=== PATIENT | male | born 1985 | race Caucasian/White ===

== ENCOUNTER 2018-06-25 16:48 | Day surgery (SDC) | payer BC ==
[~2018-06-25] VITALS: Ht 175.3 cm; Wt 104.5 kg
[2018-06-25] MEDS ORDERED: ONDANSETRON 4MG/2ML VIAL (J2405) IV ONE (17:15)
[2018-06-25] MEDS ORDERED: NS 1,000 ML IV ONE (17:15)
[2018-06-25] MEDS ORDERED: KETOROLAC 30 MG/ML VIAL (J1885) IV ONE (17:15)
[2018-06-25] MEDS ORDERED: HYDR-4514 PO (17:20)
[2018-06-25] MEDS ORDERED: PROTPAK PO (17:20)
[2018-06-25] MEDS ORDERED: VENTAER INH (17:20)
[2018-06-25 17:38] LABS: BASO % 0.2 % (0.0-1.0); EOS # 0.1 10^3/uL (0.0-0.50); EOS % 1.8 % (0.0-3.0); HEMATOCRIT 48.1 % (42.0-52.0); HEMOGLOBIN 15.1 g/dl (13.5-17.5); LYMPH # 0.8 10^3/uL (1.5-4.5); LYMPH % 16.9 % (24.0-44.0); MEAN CORPUSCULAR HEMOGLOBIN 23.5 pg (27.0-33.0); MEAN CORPUSCULAR HGB CONC 31.4 g/dl (32.0-36.5); MEAN CORPUSCULAR VOLUME 74.9 fl (80.0-96.0); MONO # 0.3 10^3/uL (0.0-0.8); MONO % 6.4 % (0.0-5.0); NEUTROPHILS # 3.4 10^3/uL (1.8-7.7); NEUTROPHILS % 74.7 % (36.0-66.0); PLATELET COUNT, AUTOMATED 103 10^3/uL (150-450); RED BLOOD COUNT 6.42 10^6/uL (4.30-6.10); WHITE BLOOD COUNT 4.6 10^3/uL (4.0-10.0)
[2018-06-25] MEDS ORDERED: MORPHINE 4 MG/ML 1ML VIAL/SYRINGE (J2270) IV ONE ×2 (18:00→20:15)
[2018-06-25 18:08] LABS: ALBUMIN 3.6 GM/DL (3.2-5.2); ALT/SGPT 56 U/L (12-78); BILIRUBIN,DIRECT < 0.1 MG/DL (0.0-0.2); BILIRUBIN,TOTAL 0.5 MG/DL (0.2-1.0); BLOOD UREA NITROGEN 16 MG/DL (7-18); CALCIUM LEVEL 8.2 MG/DL (8.5-10.1); CARBON DIOXIDE LEVEL 28 MEQ/L (21-32); CHLORIDE LEVEL 104 MEQ/L (98-107); GLOMERULAR FILTRATION RATE > 60.0 (>60); GLUCOSE, FASTING 102 MG/DL (70-100); LIPASE 81 U/L (73-393); POTASSIUM SERUM 4.6 MEQ/L (3.5-5.1); SODIUM LEVEL 139 MEQ/L (136-145); TOTAL PROTEIN 7.1 GM/DL (6.4-8.2)
[2018-06-25] MEDS ORDERED: ISOVUE-370 76% 100ML VIAL (Q9967) As Ordered ONE (18:11)
--- NOTE | 2018-06-25 18:42 | REP ---
Clinical: Acute right lower quadrant pain. Technique: Axial contrast enhanced images from the lung bases to the pubic symphysis using 100 ml Isovue 370 intravenous contrast material with coronal and sagittal re-formations. Comparison: None. Findings: Right lower quadrant demonstrates dilated appendix measuring 14.5 mm diameter with appendicolith and periappendiceal inflammatory stranding consistent with acute appendicitis (images [id number]). There is evidence for prior partial resection and anastomoses in the adjacent right lower quadrant. There is no evidence for bowel obstruction or free air to suggest perforation and no drainable collection/abscess. There is eventration of the anterior abdominal wall nonobstructed loops of bowel likely related to prior surgery. Fatty infiltration to the liver without focal hepatic lesion identified. There is a small ovoid low density collection along the lateral contour of the spleen which measures approximately 2.9 cm maximal diameter and may represent a subcortical cyst. The pancreas, gallbladder, bilateral adrenal glands and kidneys are normal. Pelvis demonstrates normal bladder and age-appropriate prostate/seminal vesicles. No pelvic free fluid. Osseous structures are intact and without focal osseous abnormality. Lung bases demonstrate left lower lobe nodular consolidations suggesting acute pneumonia and requiring follow-up to resolution. Impression: 1. Acute appendicitis with appendicolith and dilated appendix to 14.5 mm along with surrounding periappendiceal inflammatory stranding. No bowel obstruction, perforation, ascites or drainable collection/abscess. 2. Hepatic steatosis. 3. Ovoid low density area along the contour of the spleen likely represents cyst and may be reevaluated by ultrasound. 4. Nodular left lower lobe infiltrate compatible with acute pneumonia requires followup to resolution. Electronically Signed by Helio Gao MD 06/25/2018 06:33 P
[2018-06-25] MEDS ORDERED: AMPICILLIN SOD/SULBACTAM SOD 3 GM in D5W MINI-BAG PLUS 100 ML IV ONE (19:30)
[2018-06-25] MEDS ORDERED: PROT1TAB2 PO (19:53)
[2018-06-25] MEDS ORDERED: BREO1INH INH (19:54)
--- NOTE | 2018-06-25 20:04 | REP ---
Clinical: Left lower lobe infiltrate on CT . Comparison: CT dated 06/25/2018 at 06:09 p.m. . Technique: PA and lateral. Findings: The mediastinum and cardiac silhouette are normal. Retrocardiac/left lower lobe infiltrate is subtle by x-ray when compared with CT. No further consolidation, effusion, or pneumothorax noted. The skeletal structures are intact and normal. Impression: The left lower lobe consolidation/infiltrate noted on CT is poorly identified by current x-ray evaluation. Electronically Signed by Helio Gao MD 06/25/2018 07:55 P
--- NOTE | 2018-06-25 20:37 | ECGEPIP ---
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
[2018-06-25] MEDS ORDERED: MORPHINE 4 MG/ML 1ML VIAL/SYRINGE (J2270) As Ordered ONE (20:44)
[2018-06-25] MEDS ORDERED: KETOROLAC 30 MG/ML VIAL (J1885) IV PRN ×2 (20:45→23:45)
[2018-06-25] MEDS ORDERED: ACETAMINOPHEN TAB 650MG DOSE (2X325MG) PO PRN (20:45)
[2018-06-25] MEDS ORDERED: ONDANSETRON 4MG/2ML VIAL (J2405) IV PRN ×2 (20:45→23:45)
[2018-06-25] MEDS: NS 1,000 ML IV SCH (20:51)
[2018-06-25] MEDS ORDERED: BUPIVACAINE/EPIN 0.25% 30 ML VIAL As Ordered ONE (21:51)
[2018-06-25] MEDS ORDERED: fentaNYL 100 MCG/2 ML INJECTION (J3010) As Ordered ONE ×2 (22:28→22:36)
[2018-06-25] MEDS ORDERED: PROPOFOL 200 MG/20 ML VIAL As Ordered ONE (22:28)
[2018-06-25] MEDS ORDERED: ROCURONIUM BROMIDE 50 MG/5 ML VIAL As Ordered ONE (22:28)
[2018-06-25] MEDS ORDERED: ONDANSETRON 4MG/2ML VIAL (J2405) As Ordered ONE (22:29)
[2018-06-25] MEDS ORDERED: dexameTHASONE 4 MG/ML 1ML VIAL (J1100) As Ordered ONE (22:29)
[2018-06-25] MEDS ORDERED: SUCCINYLCHOLINE 100 MG/5 ML SYRINGE (J0330) As Ordered ONE (22:29)
[2018-06-25] MEDS ORDERED: LIDOCAINE 2% INJ 100 MG/5 ML SDV (FOR ANES.) As Ordered ONE (22:29)
[2018-06-25] MEDS ORDERED: ESMOLOL INJ 100MG/10ML VIAL As Ordered ONE (22:50)
[2018-06-25] MEDS ORDERED: SUGAMMADEX SODIUM 500 MG/5 ML VIAL (BRIDION) As Ordered ONE (23:01)
[2018-06-25] MEDS ORDERED: MEPERIDINE 50 MG/ML 1ML VIAL (J2175) As Ordered ONE (23:17)
[2018-06-25 23:35] VITALS: BP 147/67
[2018-06-25] MEDS ORDERED: METOCLOPRAMIDE INJ 10MG/2ML VIAL (J2765) IV PRN (23:45)
[2018-06-25] MEDS ORDERED: MEPERIDINE INJ 25 MG/ML VIAL (J2175) IV PRN (23:45)
[2018-06-25] MEDS ORDERED: PERCOCET 5MG/325MG TAB PO PRN (23:45)
[2018-06-25] MEDS ORDERED: fentaNYL 100 MCG/2 ML INJECTION (J3010) IV PRN (23:45)
[2018-06-25] MEDS ORDERED: LR 1,000 ML IV SCH (23:45)
[2018-06-26] VITALS (8 sets, daily range): BP systolic 128–157; BP diastolic 60–70
[2018-06-26] MEDS: PIPERACILLIN/TAZOBACTAM SOD 3.375 GM in D5W MINI-BAG PLUS 50 ML IV SCH ×2 (01:12→08:21)
[2018-06-26] MEDS: NORCO, ANEXSIA 5/325MG TABLET (HYDROcodone/ACETAMINOPHEN) PO PRN ×2 (01:12→08:23)
[2018-06-26] MEDS: SENOKOT S TAB PO SCH ×2 (01:14→08:22)
[2018-06-26] MEDS: MORPHINE 4 MG/ML 1ML VIAL/SYRINGE (J2270) IV PRN ×2 (03:25→11:23)
[2018-06-26 06:08] LABS: HEMATOCRIT 44.5 % (42.0-52.0); HEMOGLOBIN 13.7 g/dl (13.5-17.5); MEAN CORPUSCULAR HEMOGLOBIN 23.3 pg (27.0-33.0); MEAN CORPUSCULAR HGB CONC 30.8 g/dl (32.0-36.5); MEAN CORPUSCULAR VOLUME 75.8 fl (80.0-96.0); RED BLOOD COUNT 5.87 10^6/uL (4.30-6.10); WHITE BLOOD COUNT 4.1 10^3/uL (4.0-10.0)
[2018-06-26 06:29] LABS: PLATELET COUNT, AUTOMATED 79 10^3/uL (150-450)
[2018-06-26] MEDS: NS 1,000 ML IV SCH (06:45)
[2018-06-26] MEDS ORDERED: AUGM875T28 PO (08:58)
[2018-06-26] MEDS ORDERED: ENOXAPARIN 40 MG/0.4 ML SYRINGE (J1650) SC SCH (09:00)
[2018-06-26] MEDS ORDERED: PANTOPRAZOLE 40MG TAB (PROTONIX) PO SCH (09:00)
--- NOTE | 2018-06-27 09:22 | HPE ---
DATE OF ADMISSION: 06/25/2018 CHIEF COMPLAINT: Abdominal pain. HISTORY OF PRESENT ILLNESS: The patient is a 32-year-old male, who presents with right lower quadrant abdominal pains that has been progressively getting worse over the past 2 days. Denies any nausea or vomiting. No fevers or chills. No abdominal trauma recently. He came into emergency room, had normal labs, normal vitals. However, his CT scan was positive for acute appendicitis. Therefore, I was called to evaluate. Currently, he is still having pain in the right lower quadrant. No other significant findings. PAST MEDICAL HISTORY: Leukemia. PAST SURGICAL HISTORY: Ex lap with a small bowel resection, left shoulder surgery, pilonidal cyst surgery. ALLERGIES: LORAZEPAM. HOME MEDICATIONS: Please see med rec. SOCIAL HISTORY: Denies current drug, alcohol, tobacco abuse. FAMILY HISTORY: Noncontributory. REVIEW OF SYSTEMS: Pertinent positives and negatives as stated in the HPI. PHYSICAL EXAMINATION: General: Alert and oriented times three. No acute stress. Vital signs: Temperature 98.7, pulse 80, respirations 16, blood pressure 191/101, pulse oximetry 97% on room air. HEENT: Pupils equally round, react to light and accommodation. Heart: S1, S2, regular rate and rhythm. Lungs: Clear to auscultation bilaterally. Abdomen: Soft. Tenderness to palpation right lower quadrant. Localized guarding. There is a large ventral incisional hernia. Extremities: No clubbing, cyanosis or edema. LABORATORY DATA: White count 4.6. Hemoglobin 15.1. Platelets 103. Potassium 4.6. Lactic acid 1.6. IMAGING: CT abdomen and pelvis was done, which shows acute appendicitis with appendicolith and a dilated appendix at 14.5 mm with surrounding periappendiceal inflammatory stranding. No signs of any bowel obstruction, perforation or drainable collections. He does also have a very large ventral hernia. ASSESSMENT AND PLAN: The patient is a 32-year-old male with signs and symptoms consistent with acute appendicitis. Recommendation is to proceed with laparoscopic, possible open appendectomy. Risk and benefits of procedure not limited to but including bleeding, infection, damage to surrounding structures, need for further surgery were discussed in detail with the patient. Informed was obtained and procedure was planned. Postoperatively, we will keep him overnight and as long as his labs are okay in the morning and he is afebrile, we will plan to discharge him home then.
--- NOTE | 2018-06-27 11:01 | DSES ---
DATE OF ADMISSION: 06/25/2018 DATE OF DISCHARGE: 06/26/2018 ADMISSION DIAGNOSIS: Acute appendicitis. DISCHARGE DIAGNOSIS: Acute appendicitis. HOSPITAL COURSE: The patient is a 32-year-old male presented to the ER on the with acute appendicitis. He was taken the operating room yesterday evening for a lab mapping. Postoperatively he is doing well. He does have a drain in the right lower quadrant still that was left in place because of the extensive adhesions that were down there in that it has some serosanguineous fluid in it. Other than that his pain is mainly at his incision sites. No fevers or chills. He is urinating appropriately, tolerating a diet. Plan is to discharge him home today. He has pain meds at home already. I will send him home with a 7-day course of antibiotics and he will follow up me in the office this to have his drain removed. All of his questions were answered. He knows that he is shower starting tonight. No baths for 5 days. No lifting more 20 pounds for 2 weeks.
--- NOTE | 2018-06-27 12:32 | RO ---
DATE OF PROCEDURE: 06/25/2018 PREOPERATIVE DIAGNOSIS: Acute appendicitis. POSTOPERATIVE DIAGNOSIS: Acute appendicitis. PROCEDUREL Laparoscopic appendectomy. SURGEON: Mert Hidalgo DO LEAD SYSTEMS ENGINEER: None. ANESTHESIA: General. ESTIMATED BLOOD LOSS (EBL): 5. COMPLICATION: None. INDICATION FOR PROCEDURE: The patient is a 32-year-old male who presents with right lower quadrant abdominal pain, thought acute appendicitis. Recommendation to proceed with laparoscopic, possible open, appendectomy. The risks and benefits of the procedure not limited but including bleeding, infection, hernia formation, damage to surrounding structures, need for further surgery discussed in detail with the patient. Informed consent was obtained, and procedure was planned. DESCRIPTION OF PROCEDURE: The patient brought back to operating room #3. After sufficient sedation, the abdomen was sterilely prepped and draped. Next, time-out was done to confirm proper patient and proper procedure. Following that, a 5-mm incision made in left lower quadrant, Veress needle inserted, and the abdomen was insufflated with 15 mmHg. Next, the Veress needle was removed. A 5-mm Optiview port was used to gain access to the abdomen. Once the abdomen was entered, there were multiple adhesions of small bowel and large bowel throughout the entire abdomen. Another 5-mm port was placed in left lower quadrant. Another 5-mm port in the left midabdomen. Using sharp dissection, I was able to take down loops of small bowel that were adhered along the pelvis in the right lower quadrant. Once all those loops were taken down, the cecum was identified densely adhered to the right lower quadrant, as well as the appendix was scarred into the abdominal wall. I was able to carefully dissect that free using some blunt and sharp dissection. Once that was done, I was able to find the base of the appendix, dissect through the mesoappendix, and then amputate that using the Enseal. The base the appendix was then ligated with two polydioxanone suture (PDS) Endoloops and amputated as well using the Enseal. The appendix was then removed in a 5-mm EndoCatch bag through the left lower quadrant port. The 19-Setswana Declan drain was then placed in the right lower quadrant, brought out through the left lower quadrant incision, sutured in place with a 2-0 silk suture. The abdomen was then desufflated. Skin incisions were closed 4-0 Vicryl subcuticular sutures and was cleaned and dried. Steri-Strips, 4 x 4, and tape were applied, thus ending the procedure.
== END 2018-06-26 11:46 | disposition home or self-care (01) ==
LOC: M ED 16:48 → M SDC 19:46 → M MSPAV 06-26 00:30 → M SDC 06-26 11:46
PROVIDERS: ATTEND Surgery
DX: K35.890 Other acute appendicitis without perforation or gangrene (principal); Z85.6 Personal history of leukemia; Z79.899 Other long term (current) drug therapy; Z88.8 Allergy status to other drugs, medicaments and biological substances
CPT/HCPCS: 36415; 44970; 71046; 74177; 80048; 80076; 81001; 83605; 83690; 85025; 85027; 85049; 85055; 87040; 88304; 93005; 96361; 96365; 96375; 96376; 99284; J0330; J1100; J1885; J2175; J2270; J2405; J2543; J3010; Q9967

== ENCOUNTER 2019-01-22 15:37 | Emergency (ER) | payer BC ==
[~2019-01-22] VITALS: Ht 175.3 cm; Wt 104.5 kg
[2019-01-22] MEDS ORDERED: NS 500 ML IV ONE (17:45)
[2019-01-22] MEDS ORDERED: ISOVUE-370 76% 100ML VIAL (Q9967) As Ordered ONE (17:59)
--- NOTE | 2019-01-22 18:44 | REPVR ---
PROCEDURE INFORMATION: Exam: CT Angiography Chest With Contrast Exam date and time: 01/22/2019 5:45 PM Clinical history: 33 years old, male; Abnormal findings; Abnormal diagnostic tests; Elevated d-dimer; Other: Pleuritic chest pain; Additional info: Elevated d-dimer, pleuritic cp TECHNIQUE: Imaging protocol: Computed tomographic angiography of the chest with intravenous contrast. 3D rendering: MIP reconstructed images were created and reviewed. Radiation optimization: All CT scans at this facility use at least one of these dose optimization techniques: automated exposure control; mA and/or kV adjustment per patient size (includes targeted exams where dose is matched to clinical indication); or iterative reconstruction. Contrast material: ISOVUE 370; Contrast volume: 75 ml; Contrast route: IV; COMPARISON: CR Chest, 2 view PA, Lat 06/25/2018 7:26 PM FINDINGS: Pulmonary arteries: No pulmonary embolism identified. Aorta: Unremarkable. No aortic aneurysm. No aortic dissection. Lungs: No infiltrates. Pleural space: No pleural effusion. No pneumothorax. Heart: Unremarkable. No cardiomegaly. No pericardial effusion. Mediastinum: There is mild thickening of the distal esophageal wall. Correlate with clinical information regarding esophagitis. Liver: There is a diffuse decrease in hepatic parenchymal density, consistent with fatty infiltration. Lymph nodes: No mediastinal or hilar lymphadenopathy. Note is made of prominent periesophageal lymph nodes measuring up to 13 mm. These are nonspecific. Bones/joints: Prominent intraosseous hemangioma at T4. No acute fracture. IMPRESSION: 1. No pulmonary embolism identified. 2. No infiltrate or pleural effusion. 3. Prominent periesophageal lymph nodes, nonspecific. 4. Question distal esophagitis. 5. Hepatic steatosis. Electronically signed by: Katie Mercedes On 01/22/2019 18:44:41 PM
[2019-01-22 18:54] LABS: CK-MB VALUE MASS 1.9 NG/ML (<3.6); CPK CREATINE PHOSPHOKINASE 127 U/L (39-308); TROPONIN I < 0.02 NG/ML (< 0.10)
--- NOTE | 2019-01-22 19:08 | REPVR ---
PROCEDURE INFORMATION: Exam: US Duplex Lower Extremity Veins Exam date and time: 01/22/2019 7:01 PM Clinical history: 33 years old, male; Other: SOB; Additional info: Elevated d-dimer, mult risk factors for dvt/pe TECHNIQUE: Imaging protocol: Real-time duplex ultrasound of the Lower Extremities with 2-D zhao scale, color Doppler flow and spectral waveform analysis with image documentation. Complete exam focused on the bilateral lower extremity veins. COMPARISON: No relevant prior studies available. FINDINGS: Right deep veins: Unremarkable. The common femoral, femoral, proximal profunda femoral and popliteal veins are patent without thrombus. Normal Doppler waveforms. Normal compressibility and/or augmentation response. Right superficial veins: Saphenofemoral junction is patent without thrombus. Left deep veins: Unremarkable. The common femoral, femoral, proximal profunda femoral and popliteal veins are patent without thrombus. Normal Doppler waveforms. Normal compressibility and/or augmentation response. Left superficial veins: Saphenofemoral junction is patent without thrombus. IMPRESSION: No acute findings. No evidence of deep vein thrombosis. Electronically signed by: Katie Mercedes On 01/22/2019 19:08:10 PM
[2019-01-22 19:39] VITALS: BP 141/84
--- NOTE | 2019-01-22 20:45 | ECGEPIP ---
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
--- NOTE | 2019-01-23 10:27 | ED PDOC ---
Post-Departure Follow-Up roly monge and dr powell faxed formal report of cta chest for fu Robyn Mcgowan MD Jan 23, 2019 10:27
== END 2019-01-22 19:41 | disposition home or self-care (01) ==
LOC: M ED 15:37
DX: R79.1 Abnormal coagulation profile (principal); K76.0 Fatty (change of) liver, not elsewhere classified; D69.6 Thrombocytopenia, unspecified; L04.0 Acute lymphadenitis of face, head and neck; K20.9 Esophagitis, unspecified; K21.9 Gastro-esophageal reflux disease without esophagitis; C95.91 Leukemia, unspecified, in remission; K27.9 Peptic ulcer, site unspecified, unspecified as acute or chronic, without hemorrhage or perforation; Z90.49 Acquired absence of other specified parts of digestive tract; Z87.891 Personal history of nicotine dependence; F12.10 Cannabis abuse, uncomplicated; Z79.899 Other long term (current) drug therapy; Z88.8 Allergy status to other drugs, medicaments and biological substances
CPT/HCPCS: 71275; 82550; 82553; 84484; 93005; 93970; 96360; 99284; Q9967

== ENCOUNTER → 2019-01-22 | Outpatient (CLI) | payer BC ==
[~2019-01-22] MED LIST: AUGM875T28 PO; BREO1INH INH; HYDR-4514 PO; PROT1TAB2 PO; PROTPAK PO; VENTAER INH
[2019-01-22 09:46] LABS: BASO % 0.6 % (0.0-1.0); EOS # 0.1 10^3/uL (0.0-0.5); HEMOGLOBIN 15.2 g/dl (13.5-17.5); LYMPH # 1.3 10^3/uL (1.5-5.0); LYMPH % 37.5 % (24.0-44.0); MEAN CORPUSCULAR HEMOGLOBIN 25.2 pg (27.0-33.0); MEAN CORPUSCULAR HGB CONC 31.7 g/dl (32.0-36.5); MEAN CORPUSCULAR VOLUME 79.6 fl (80.0-96.0); MONO # 0.1 10^3/uL (0.0-0.8); NEUTROPHILS # 1.9 10^3/uL (1.5-8.5); NEUTROPHILS % 55.6 % (36.0-66.0); PLATELET COUNT, AUTOMATED 115 10^3/uL (150-450); RED BLOOD COUNT 6.03 10^6/uL (4.30-6.10); WHITE BLOOD COUNT 3.5 10^3/uL (4.0-10.0)
[2019-01-22 10:14] LABS: ALBUMIN 3.6 GM/DL (3.2-5.2); ALT/SGPT 75 U/L (12-78); BILIRUBIN,TOTAL 0.2 MG/DL (0.2-1.0); BLOOD UREA NITROGEN 17 MG/DL (7-18); CALCIUM LEVEL 8.9 MG/DL (8.5-10.1); CARBON DIOXIDE LEVEL 28 MEQ/L (21-32); CHLORIDE LEVEL 110 MEQ/L (98-107); CREATININE FOR GFR 0.91 MG/DL (0.70-1.30); GLOMERULAR FILTRATION RATE > 60.0 (>60); GLUCOSE, FASTING 118 MG/DL (70-100); POTASSIUM SERUM 4.2 MEQ/L (3.5-5.1); SODIUM LEVEL 141 MEQ/L (136-145); TOTAL PROTEIN 7.3 GM/DL (6.4-8.2)
== END ==
LOC: M LAB 09:12
PROVIDERS: ATTEND Physician Assistant
DX: R06.00 Dyspnea, unspecified (principal)

== ENCOUNTER 2019-04-16 14:49 | Inpatient (IN) | payer BC, OTHER ==
[~2019-04-16] VITALS: Ht 175.3 cm; Wt 109.5 kg
[2019-04-16] MEDS ORDERED: SYMB16INH INH (15:03)
[2019-04-16] MEDS ORDERED: ONDANSETRON 4MG/2ML VIAL (J2405) IV ONE (15:30)
[2019-04-16] MEDS: MORPHINE 2 MG/ML 1ML VIAL (J2270) IV PRN ×3 (15:45→17:40)
[2019-04-16] MEDS ORDERED: ISOVUE-370 76% 100ML VIAL (Q9967) As Ordered ONE (15:49)
--- NOTE | 2019-04-16 16:35 | REP ---
CT of the chest with IV contrast for trauma: Comparison is 01/22/2019. There is a tiny pneumothorax anteriorly in the apex of the right lung. No other pneumothorax. There is no hemothorax or pulmonary contusion. The thoracic aorta is unremarkable. There is no periaortic hematoma. There is no mediastinal hematoma. Cardiac size is normal. There is no pericardial effusion. There are no fractures of the visualized portions of the clavicles or scapulas. There is a fracture of the posterior arch of the right tenth rib, nondisplaced. No other rib fractures are identified. There is no sternal fracture. No vertebral fractures are identified. Impression: Nondisplaced fracture of the posterior arch of the right tenth rib. Tiny right apical pneumothorax anteriorly in the apex of the right lung. No hemothorax or pulmonary contusion. No periaortic or mediastinal hematoma. Electronically Signed by Mert Guzmán MD 04/16/2019 04:27 P
--- NOTE | 2019-04-16 16:49 | REP ---
CT of the abdomen and pelvis with IV contrast: Comparison is 06/25/2018. The left lower lobe infiltrate identified previously has resolved. There is no pneumoperitoneum or hemoperitoneum. The hepatic parenchyma is homogeneous. There is focal induration at the tip of the liver interposed between the liver and right kidney, possibly a mesenteric contusion. The pancreas is unremarkable. The stomach is distended with ingested material. There is a focal zone of nonenhancement at the anterior margin of the spleen, possibly a splenic hematoma as an interval change. The previous subcapsular cyst noted along the lateral margin of the spleen is no longer identified. The adrenals are unremarkable. There are no pararenal hematoma as. No renal contusion. The renal cortices enhance normally. The abdominal aorta is unremarkable. There is no periaortic hematoma. There is no bowel distension or obstruction. There is a circumferential anastomotic surgical suture line in a loop of small bowel on the right, unchanged. The patient reportedly has an appendectomy. Pelvis: There is no free fluid. Pelvic bowel loops are unremarkable. The bladder is unremarkable. There are no lumbar or pelvic fractures. There is a fracture of the posterior arch of the right tenth rib. Impression: No pneumoperitoneum or hemoperitoneum. Possible splenic hematoma. The liver, kidneys and abdominal aorta are unremarkable. Stomach is distended with ingested material. Anastomotic surgical suture ring in a small bowel loop on the right. The patient reportedly has an appendectomy. Fracture of the posterior arch of the right tenth rib. No lumbar or pelvic fractures. Possible mesenteric contusion interposed between the inferior tip of the liver and the right kidney. Electronically Signed by Mert Guzmán MD 04/16/2019 04:41 P
[2019-04-16 17:24] LABS: HEMATOCRIT 50.4 % (42.0-52.0); HEMOGLOBIN 15.6 g/dl (13.5-17.5); MEAN CORPUSCULAR HEMOGLOBIN 24.7 pg (27.0-33.0); MEAN CORPUSCULAR VOLUME 79.7 fl (80.0-96.0); PLATELET COUNT, AUTOMATED 149 10^3/uL (150-450); RED BLOOD COUNT 6.32 10^6/uL (4.30-6.10); WHITE BLOOD COUNT 4.3 10^3/uL (4.0-10.0)
[2019-04-16 17:28] LABS: INR 1.17; PROTHROMBIN TIME 14.6 SECONDS (11.8-14.0)
[2019-04-16 17:29] LABS: PARTIAL THROMBOPLASTIN TIME 24.4 SECONDS (25.0-38.4)
[2019-04-16 17:32] LABS: ALBUMIN 4.2 GM/DL (3.2-5.2); BILIRUBIN,DIRECT 0.2 MG/DL (0.0-0.2); BILIRUBIN,TOTAL 0.6 MG/DL (0.2-1.0); TOTAL PROTEIN 7.4 GM/DL (6.4-8.2)
[2019-04-16] MEDS ORDERED: CLIN1LOT TOP (18:49)
[2019-04-16] MEDS ORDERED: NS 1,000 ML IV SCH (18:51)
[2019-04-16] MEDS ORDERED: ONDANSETRON 4MG/2ML VIAL (J2405) IV PRN ×2 (19:00)
[2019-04-16] MEDS ORDERED: IPRATROPIUM 0.5MG/ALBUTEROL 2.5MG INH SOL UD 3ML (DUONEB)(J7620) NEB PRN (19:00)
[2019-04-16] MEDS ORDERED: NALBUPHINE HCL 10 MG/ML AMP (J2300) IV PRN (19:00)
[2019-04-16] MEDS ORDERED: diphenhydrAMINE INJ 50MG/ML VIAL (J1200) IV PRN (19:00)
[2019-04-16] MEDS ORDERED: EPIDURAL/PCA KEYS XX PRN (19:00)
[2019-04-16] MEDS ORDERED: NALOXONE INJ 0.4 MG/1 ML VIAL (J2310) IV PRN (19:00)
--- NOTE | 2019-04-16 19:31 | HPE ---
DATE OF ADMISSION: 04/16/2019 BRIEF HISTORY OF PRESENT ILLNESS: The patient is 33-year-old male who was climbing a ladder and fell off the ladder and hit his right posterior chest on the deck railing and had some shortness of breath and afterwards pain with inspiration came to the emergency room and was evaluated for this trauma. Did not have any hypotensive episodes did not have any hematemesis. PAST MEDICAL HISTORY: 1. Significant for history of hairy cell leukemia currently in remission. 2. Status post trauma to the upper abdomen with a splenic contusion. 3. Ventral hernia repair (question component separation) history of appendectomy, history of asthma. MEDICATIONS: Budesonide, [place] and Protonix. PHYSICAL EXAMINATION: Reveals a 33 old male who looks stated age. HEENT is unremarkable. Neck: Supple without adenopathy. Lungs are clear to auscultation anteriorly without crackles, wheezes or rhonchi. Heart is regular without murmur. Abdomen is soft, nondistended, nontender. He does complain of some right posterior rib tenderness and but otherwise his pelvis is stable. He has no contusions or abrasions on his extremities and no other significant abnormalities on his abdominal exam. His previous hernia repair is intact. No evidence of significant abnormality present. IMPRESSION AND PLAN: Patient is status post trauma / fall with a rib fracture and possible liver contusion given some elevated liver function tests. I do feel that this will need to be watched over the next 24-48 hours to make sure this is progressing. The questionable and pneumothorax is appreciated on the CT scan I feel is probably some apical blebs instead of true pneumothorax. However, will get a follow-up x-ray in the morning to rule out specific abnormality there. In addition, he may have some difficulties with pain control given his chronic narcotic use. 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
[2019-04-16 21:01] VITALS: BP 143/73
[2019-04-16 21:31] VITALS: BP 142/73
[2019-04-16] MEDS: NS 1,000 ML IV SCH (21:37)
[2019-04-16] MEDS: MORPHINE 1MG/ML IN 0.9% NACL 100ML IV BAG IV PRN (21:38)
[2019-04-16] MEDS: KETOROLAC 30 MG/ML VIAL (J1885) IV SCH (21:39)
[2019-04-16] MEDS: PANTOPRAZOLE 40MG INJ (PROTONIX) (C9113) IV SCH (21:39)
[2019-04-16 22:01] VITALS: BP 141/63
[2019-04-16 22:31] VITALS: BP 128/66
[2019-04-17] VITALS (8 sets, daily range): BP systolic 121–137; BP diastolic 71–79
[2019-04-17] MEDS: IPRATROPIUM 0.5MG/ALBUTEROL 2.5MG INH SOL UD 3ML (DUONEB)(J7620) NEB SCH ×5 (02:00→19:57)
[2019-04-17] MEDS: KETOROLAC 30 MG/ML VIAL (J1885) IV SCH ×4 (02:47→20:50)
[2019-04-17 06:12] LABS: HEMATOCRIT 42.2 % (42.0-52.0); MEAN CORPUSCULAR HEMOGLOBIN 25.3 pg (27.0-33.0); MEAN CORPUSCULAR HGB CONC 31.5 g/dl (32.0-36.5); MEAN CORPUSCULAR VOLUME 80.4 fl (80.0-96.0); PLATELET COUNT, AUTOMATED 124 10^3/uL (150-450); RED BLOOD COUNT 5.25 10^6/uL (4.30-6.10); WHITE BLOOD COUNT 4.4 10^3/uL (4.0-10.0)
[2019-04-17 06:19] LABS: HEMOGLOBIN 13.3 g/dl (13.5-17.5)
[2019-04-17 06:40] LABS: ALBUMIN 3.4 GM/DL (3.2-5.2); ALT/SGPT 339 U/L (12-78); BILIRUBIN,TOTAL 0.7 MG/DL (0.2-1.0); BLOOD UREA NITROGEN 25 MG/DL (7-18); CALCIUM LEVEL 8.1 MG/DL (8.5-10.1); CARBON DIOXIDE LEVEL 25 MEQ/L (21-32); CHLORIDE LEVEL 108 MEQ/L (98-107); CREATININE FOR GFR 0.99 MG/DL (0.70-1.30); GLOMERULAR FILTRATION RATE > 60.0 (>60); GLUCOSE, FASTING 144 MG/DL (70-100); POTASSIUM SERUM 3.7 MEQ/L (3.5-5.1); SODIUM LEVEL 139 MEQ/L (136-145); TOTAL PROTEIN 6.7 GM/DL (6.4-8.2)
[2019-04-17] MEDS: SYMBICORT 160/4.5MCG INHALER 6GM INH SCH ×2 (07:42→19:58)
[2019-04-17] MEDS: PANTOPRAZOLE 40MG INJ (PROTONIX) (C9113) IV SCH ×2 (08:35→20:50)
--- NOTE | 2019-04-17 10:16 | REP ---
Chest x-ray: Two views. History: Pneumothorax and rib fracture. Comparison chest x-ray: June 25, 2018. Comparison CT study 20 April 16, 2019. This CT study showed a tiny right apical pneumothorax and right tenth rib fracture. Findings : There is a tiny sliver of pleural air just visible at the right apex. No infiltrate is seen. Right hemidiaphragm is a little elevated. Pleural angles are sharp. Mediastinum is not widened. The lung uriostegui are clear. Impression: Tiny right apical pneumothorax is just barely visible. Otherwise no active disease seen. Electronically Signed by Abner June MD 04/17/2019 10:08 A
--- NOTE | 2019-04-17 10:52 | IPN ---
DATE OF SERVICE: 04/17/2019 The patient overall has been doing well, getting adequate pain control with his pain medication via the patient-controlled analgesia (SOAP SLABBER). Otherwise, seems to be making good progress. No significant shortness of breath. He does have some spasm on his right chest wall with deep inspiration. Has good urine output. He has tolerated diet without nausea or vomiting. His vital signs have been stable. He has been afebrile. He has had good oxygen (O2) saturation. His chest x-ray reveals no evidence of significant pneumothorax. It is just barely visible on the x-ray. When I looked at his previous CAT scans from an outside hospital, I did not see this apical bleb/pneumothorax. Thus, it is suggestive that this is more likely a very small pneumothorax that is present. Otherwise, his lungs are clear anteriorly. Heart is regular. Abdomen: Soft, nontender, nondistended. IMPRESSION AND PLAN: The patient has evidence of a rib fracture and at this point small apical pneumothorax. Will continue treating him with a SOAP SLABBER. I anticipate he will be converted over to by mouth pain medications tomorrow and probably discharged to home the following day on by mouth pain medications, depending on his overall status.
[2019-04-17] MEDS: MORPHINE 1MG/ML IN 0.9% NACL 100ML IV BAG IV PRN (14:22)
[2019-04-17] MEDS: NS 1,000 ML IV SCH (19:02)
[2019-04-18] MEDS: IPRATROPIUM 0.5MG/ALBUTEROL 2.5MG INH SOL UD 3ML (DUONEB)(J7620) NEB SCH ×4 (02:00→19:51)
[2019-04-18 02:01] VITALS: BP 130/80
[2019-04-18] MEDS: KETOROLAC 30 MG/ML VIAL (J1885) IV SCH ×4 (02:40→21:34)
[2019-04-18 05:17] VITALS: BP 130/79
[2019-04-18 07:17] LABS: HEMATOCRIT 39.6 % (42.0-52.0); MEAN CORPUSCULAR HEMOGLOBIN 24.9 pg (27.0-33.0); MEAN CORPUSCULAR HGB CONC 30.3 g/dl (32.0-36.5); MEAN CORPUSCULAR VOLUME 82.3 fl (80.0-96.0); RED BLOOD COUNT 4.81 10^6/uL (4.30-6.10)
[2019-04-18 07:39] LABS: ALT/SGPT 182 U/L (12-78); BILIRUBIN,TOTAL 0.5 MG/DL (0.2-1.0); BLOOD UREA NITROGEN 19 MG/DL (7-18); CALCIUM LEVEL 7.9 MG/DL (8.5-10.1); CARBON DIOXIDE LEVEL 25 MEQ/L (21-32); CHLORIDE LEVEL 107 MEQ/L (98-107); GLOMERULAR FILTRATION RATE > 60.0 (>60); GLUCOSE, FASTING 123 MG/DL (70-100); SODIUM LEVEL 139 MEQ/L (136-145); TOTAL PROTEIN 6.2 GM/DL (6.4-8.2)
[2019-04-18 08:11] LABS: PLATELET COUNT, AUTOMATED 83 10^3/uL (150-450)
[2019-04-18] MEDS: SYMBICORT 160/4.5MCG INHALER 6GM INH SCH ×2 (08:35→19:51)
[2019-04-18] MEDS: PANTOPRAZOLE 40MG INJ (PROTONIX) (C9113) IV SCH ×2 (08:47→21:33)
[2019-04-18] MEDS ORDERED: IBUPROFEN 800 MG TAB PO PRN (11:00)
[2019-04-18] MEDS: ANEXSIA, NORCO 7.5MG/325MG TABLET(HYDROCODONE/APAP) PO PRN ×3 (11:39→22:38)
--- NOTE | 2019-04-18 12:44 | REP ---
Chest x-ray: Two views. History: Pneumothorax. Comparison chest x-ray: April 17, 2019. Findings: Previously noted tiny right apical pneumothorax has decreased and is barely visible. There is slight blunting of the right posterior pleural angle indicating a small quantity of right pleural fluid. The lung uriostegui are otherwise clear. Impression: Small pleural effusion noted blunting the right lateral pleural angle. The previously noted right-sided pneumothorax has decreased and is barely visible. Electronically Signed by Abner June MD 04/18/2019 12:36 P
--- NOTE | 2019-04-18 13:12 | IPNPDOC ---
Text Note Date of Service The patient was seen on 04/18/19. NOTE No acute events overnight. Tolerating diet. No nausea or emesis. Pain is impr quang, and he has no shortness of breath. 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
[2019-04-18 14:00] VITALS: BP 136/67
[2019-04-18 22:00] VITALS: BP 145/71
[2019-04-19] MEDS: KETOROLAC 30 MG/ML VIAL (J1885) IV SCH ×2 (01:52→08:45)
[2019-04-19 02:00] VITALS: BP 132/80
[2019-04-19] MEDS: IPRATROPIUM 0.5MG/ALBUTEROL 2.5MG INH SOL UD 3ML (DUONEB)(J7620) NEB SCH ×2 (02:00→07:58)
[2019-04-19] MEDS: ANEXSIA, NORCO 7.5MG/325MG TABLET(HYDROCODONE/APAP) PO PRN ×2 (04:48→08:47)
[2019-04-19 06:00] VITALS: BP 124/65
[2019-04-19 07:06] LABS: MEAN CORPUSCULAR HEMOGLOBIN 25.5 pg (27.0-33.0); MEAN CORPUSCULAR HGB CONC 31.6 g/dl (32.0-36.5); MEAN CORPUSCULAR VOLUME 80.7 fl (80.0-96.0); RED BLOOD COUNT 4.71 10^6/uL (4.30-6.10)
[2019-04-19 07:33] LABS: ALBUMIN 2.7 GM/DL (3.2-5.2); ALT/SGPT 119 U/L (12-78); BILIRUBIN,TOTAL 0.4 MG/DL (0.2-1.0); BLOOD UREA NITROGEN 15 MG/DL (7-18); CALCIUM LEVEL 7.8 MG/DL (8.5-10.1); CARBON DIOXIDE LEVEL 29 MEQ/L (21-32); CHLORIDE LEVEL 111 MEQ/L (98-107); CREATININE FOR GFR 0.85 MG/DL (0.70-1.30); GLOMERULAR FILTRATION RATE > 60.0 (>60); GLUCOSE, FASTING 108 MG/DL (70-100); POTASSIUM SERUM 4.9 MEQ/L (3.5-5.1); SODIUM LEVEL 144 MEQ/L (136-145)
[2019-04-19 07:48] LABS: PLATELET COUNT, AUTOMATED 82 10^3/uL (150-450)
[2019-04-19] MEDS: SYMBICORT 160/4.5MCG INHALER 6GM INH SCH (07:58)
[2019-04-19] MEDS: PANTOPRAZOLE 40MG INJ (PROTONIX) (C9113) IV SCH (08:45)
[2019-04-19] MEDS ORDERED: IBUP80TA PO (10:27)
[2019-04-19] MEDS ORDERED: PERCOCET PO (10:27)
[2019-04-19] MEDS ORDERED: PERCOCET 5MG/325MG TAB PO PRN (10:30)
--- NOTE | 2019-04-23 06:48 | DSES ---
DATE OF ADMISSION: 04/16/2019 DATE OF DISCHARGE: 04/19/2019 PRINCIPAL DIAGNOSES: Rib fractures status post fall. Possible liver contusion. Questionable small pneumothorax. ASSOCIATED DIAGNOSES: History of hairy cell leukemia (in remission). Status post trauma to the upper abdomen with splenic contusion. History of ventral hernia repair. History of asthma. HISTORY OF PRESENT ILLNESS: The patient is a 33 old male who was climbing a ladder, fell off the ladder and he fell onto a porch railing and hit his right posterior chest on the deck railing. He had some shortness of breath, came into the emergency room for additional evaluation / treatment. During his workup he was found to have a rib fracture as well as some liver function tests that were slightly elevated and the area of the rib fracture is right adjacent to the liver suggesting that this was a reasonable possibility that this was a liver contusion. In addition, he had a little bit of air at the apical portion of his lung that could be a blebs or could be a pneumothorax. Looking another CT scan I do not see any of these "blebs" so it would make more sense given his trauma that this could be a small apical pneumothorax. In any case, he was followed closely over the next 24-48 hours, made comfortable and once he was comfortable enough to go home and he shows no evidence of progression of this pneumothorax, his pain was under good control, he was discharged to home on his usual medications which include Symbicort, some topical clindamycin and Protonix. He was also placed on some ibuprofen and Percocet for pain control. Once his Percocet ran out he was on chronic Hydrocodone that he will continue on. He will followup in the office in a couple weeks for reevaluation and otherwise he is instructed to do no heavy lifting or strenuous activity for the next couple weeks.
== END 2019-04-19 11:00 | disposition home or self-care (01) | DRG 144 ==
LOC: M ED 14:49 → M ED INP 18:51 → ENRESERV 21:22 → M MS5PR 04-17
PROVIDERS: ADMIT Surgery; ATTEND Surgery
DX: S22.31XA Fracture of one rib, right side, initial encounter for closed fracture (principal); S27.0XXA Traumatic pneumothorax, initial encounter; C91.41 Hairy cell leukemia, in remission; W11.XXXA Fall on and from ladder, initial encounter; Z79.899 Other long term (current) drug therapy; Z92.89 Personal history of other medical treatment; J45.909 Unspecified asthma, uncomplicated

== ENCOUNTER → 2020-02-25 | Outpatient (CLI) | payer BC ==
[~2020-02-25] MED LIST changes: +CLIN1LOT TOP; +IBUP80TA PO; +PERCOCET PO; +SYMB16INH INH
[2020-02-25 10:20] LABS: BASO % 0.6 % (0.0-1.0); EOS # 0.1 10^3/uL (0.0-0.5); EOS % 1.7 % (0.0-3.0); HEMATOCRIT 51.9 % (42.0-52.0); HEMOGLOBIN 15.8 g/dl (13.5-17.5); LYMPH # 1.4 10^3/uL (1.5-5.0); LYMPH % 40.8 % (24.0-44.0); MEAN CORPUSCULAR HEMOGLOBIN 24.3 pg (27.0-33.0); MEAN CORPUSCULAR HGB CONC 30.4 g/dl (32.0-36.5); MONO # 0.1 10^3/uL (0.0-0.8); MONO % 3.1 % (0.0-5.0); NEUTROPHILS # 1.9 10^3/uL (1.5-8.5); NEUTROPHILS % 53.5 % (36.0-66.0); PLATELET COUNT, AUTOMATED 146 10^3/uL (150-450); RED BLOOD COUNT 6.49 10^6/uL (4.30-6.10); WHITE BLOOD COUNT 3.5 10^3/uL (4.0-10.0)
[2020-02-25 10:48] LABS: ALBUMIN 4.3 GM/DL (3.2-5.2); ALT/SGPT 51 U/L (12-78); BILIRUBIN,TOTAL 0.6 MG/DL (0.2-1.0); BLOOD UREA NITROGEN 23 MG/DL (7-18); CALCIUM LEVEL 9.1 MG/DL (8.5-10.1); CARBON DIOXIDE LEVEL 29 MEQ/L (21-32); CHLORIDE LEVEL 106 MEQ/L (98-107); CHOLESTEROL LEVEL 216 MG/DL (<200); CHOLESTEROL RISK RATIO 4.408 (<5); CREATININE FOR GFR 1.03 MG/DL (0.70-1.30); FREE T4 0.84 NG/DL (0.76-1.46); GLOMERULAR FILTRATION RATE > 60.0 (>60); GLUCOSE, FASTING 114 MG/DL (70-100); HDL CHOLESTEROL 49 MG/DL (>40); LDL CHOLESTEROL 139 MG/DL (<100); NON-HDL-C 167 MG/DL; POTASSIUM SERUM 4.6 MEQ/L (3.5-5.1); SODIUM LEVEL 139 MEQ/L (136-145); TOTAL PROTEIN 7.7 GM/DL (6.4-8.2); TRIGLYCERIDES LEVEL 139 MG/DL (<150)
[2020-02-28 10:51] LABS: HEMOGLOBIN A1c 5.9 %
== END ==
LOC: M LAB 09:46
PROVIDERS: ATTEND Family Medicine
DX: K75.81 Nonalcoholic steatohepatitis (NASH) (principal); K21.00 Gastro-esophageal reflux disease with esophagitis, without bleeding; Z13.29 Encounter for screening for other suspected endocrine disorder; Z13.220 Encounter for screening for lipoid disorders

== ENCOUNTER → 2020-05-08 | Outpatient (CLI) | payer BC ==
[2020-05-08 09:22] LABS: BASO % 0.5 % (0.0-1.0); EOS # 0.1 10^3/uL (0.0-0.5); EOS % 1.8 % (0.0-3.0); HEMATOCRIT 46.7 % (42.0-52.0); HEMOGLOBIN 14.6 g/dl (13.5-17.5); LYMPH # 1.3 10^3/uL (1.5-5.0); LYMPH % 33.8 % (24.0-44.0); MEAN CORPUSCULAR HEMOGLOBIN 24.7 pg (27.0-33.0); MEAN CORPUSCULAR HGB CONC 31.3 g/dl (32.0-36.5); MEAN CORPUSCULAR VOLUME 78.9 fl (80.0-96.0); MONO # 0.1 10^3/uL (0.0-0.8); MONO % 2.8 % (0.0-5.0); NEUTROPHILS # 2.4 10^3/uL (1.5-8.5); NEUTROPHILS % 60.8 % (36.0-66.0); PLATELET COUNT, AUTOMATED 163 10^3/uL (150-450); RED BLOOD COUNT 5.92 10^6/uL (4.30-6.10); WHITE BLOOD COUNT 3.9 10^3/uL (4.0-10.0)
[2020-05-08 09:48] LABS: ALBUMIN 3.5 GM/DL (3.2-5.2); ALT/SGPT 57 U/L (12-78); BILIRUBIN,DIRECT < 0.1 MG/DL (0.0-0.2); BILIRUBIN,TOTAL 0.6 MG/DL (0.2-1.0); BLOOD UREA NITROGEN 18 MG/DL (7-18); CALCIUM LEVEL 9.1 MG/DL (8.5-10.1); CARBON DIOXIDE LEVEL 32 MEQ/L (21-32); CHLORIDE LEVEL 106 MEQ/L (98-107); CHOLESTEROL LEVEL 169 MG/DL (<200); CHOLESTEROL RISK RATIO 4.694 (<5); CREATININE FOR GFR 0.91 MG/DL (0.70-1.30); GLOMERULAR FILTRATION RATE > 60.0 (>60); GLUCOSE, FASTING 115 MG/DL (70-100); HDL CHOLESTEROL 36 MG/DL (>40); LDL CHOLESTEROL 109 MG/DL (<100); LIPASE 139 U/L (73-393); NON-HDL-C 133 MG/DL; POTASSIUM SERUM 4.7 MEQ/L (3.5-5.1); SODIUM LEVEL 141 MEQ/L (136-145); TRIGLYCERIDES LEVEL 121 MG/DL (<150)
[2020-05-08 09:51] LABS: HEMOGLOBIN A1c 5.8 %
== END ==
LOC: M LAB 08:36
PROVIDERS: ATTEND Physician Assistant
DX: R10.10 Upper abdominal pain, unspecified (principal)

== ENCOUNTER → 2020-05-09 | Outpatient (CLI) | payer BC ==
[~2020-05-09] MED LIST changes: +GASTROGRAFIN SOLUTION 30ML (Q9963) As Ordered ONE; +ISOVUE-370 76% 100ML VIAL As Ordered ONE; +MM S100C PO; +PREV30TA3 PO
--- NOTE | 2020-05-09 18:22 | REP ---
INDICATION: UPPER ABDOMINAL PAIN, UNSPECIFIED. history of multiple small bowel obstructions and large ventral hernia repair. Progressively worsening right-sided abdominal pain similar to prior upper sewed of small-bowel obstruction. History of leukemia. COMPARISON: Comparison CT study 16 April 2019 and 25 June 2018.. TECHNIQUE: Helical scanning is acquired and 3 mm axial images re-formatted. Coronal and sagittal MPR images are generated. The CT contrast enhancement dose is 100 ML of intravenous Isovue 370. FINDINGS: Preliminary digital credit administrator radiograph demonstrates an unremarkable bowel gas pattern. Significant splenic enlargement is observed. On axial CT images, the lung bases are clear. There is no evidence of pleural effusion or upper abdominal ascites. There is moderate diffuse fatty infiltration of the liver. Liver is mildly enlarged with a craniocaudal imaging span of 19.7 cm in the midclavicular line. The spleen is enlarged as well. This measures 16 cm in greatest craniocaudal span and this is unchanged from the prior study. There is a contour indentation at the lateral margin of the spleen with a small low-density subcapsular area of thickening. This has gradually decreased in thickness since the June 25, 2018 study. No new focal splenic lesion is seen. No abnormality is noted in the pancreas. The gallbladder is unremarkable. In the region of Cid's pouch posterior to the right lobe of the liver and lateral to the right kidney, there is an irregularly shaped peripherally enhancing low-density lesion with some surrounding edema. This is inseparable from the inferior margin of the liver along its superior aspect. The low-density area measures 3.9 by 1.8 by 2.7 cm in greatest dimension. Overall dimensions including the enhancing margin are 5.9 by 4.7 x 3.9 cm. This is the area where a small area of induration was described on April 16, 2019. This area has enlarged in the interval since that prior study. There is no evidence of upper abdominal or retroperitoneal lymphadenopathy. Small and large bowel loops are unremarkable in the abdomen and pelvis. The appendix is surgically absent. Seminal vesicles, prostate, and urinary bladder are intact. No bony destructive lesion is seen. Patient is status post ventral hernia repair. No hematoma seroma seen. IMPRESSION: There is a 5.9 cm low-density area in Cid's pouch adjacent to the inferomedial margin of the right hepatic lobe with a thick enhancing margin. Possibilities include low-grade abscess versus necrotic neoplasm. This area has enlarged since the prior CT study from 16 April 2019. Consider image guided needle aspiration and/or biopsy. Fatty infiltration of the liver and hepatosplenomegaly are again noted. <Electronically signed by Patel June > 05/09/20 0810
== END ==
LOC: M RAD 15:53
PROVIDERS: ATTEND Physician Assistant
DX: R10.10 Upper abdominal pain, unspecified (principal); K76.89 Other specified diseases of liver; K76.0 Fatty (change of) liver, not elsewhere classified; R16.2 Hepatomegaly with splenomegaly, not elsewhere classified
CPT/HCPCS: 74177; Q9963; Q9967

== ENCOUNTER → 2020-05-19 | Outpatient (CLI) | payer BC ==
[~2020-05-19] MED LIST changes: -GASTROGRAFIN SOLUTION 30ML (Q9963) As Ordered ONE; -ISOVUE-370 76% 100ML VIAL As Ordered ONE; +LEVO750T13; +LEVO750T13 PO; +LIDOCAINE 1% MDV 20ML VIAL As Ordered ONE; +PERC5TAB12 PO; +SODIUM BICARBONATE 8.4% INJ 50MEQ 50 ML VIAL As Ordered ONE
--- NOTE | 2020-05-19 16:17 | REP ---
INDICATION: ABSCESS VS NECROTIC LESION MORRISONS POUCH AREA. COMPARISON: None. TECHNIQUE: The procedure is performed by JAIME Thomas, under the direct supervision of Dr. June. The risks and benefits of the procedure were explained to the patient and informed consent was obtained both orally and written. Directly prior to the start of the procedure, a formal timeout was done in the exam room. The right upper quadrant mass localized in Morison's pouch was localized using CT guidance. Skin was prepped and draped in the usual sterile fashion. Twelve ml of buffered lidocaine was used as a local anesthetic. FINDINGS: Using CT guidance a 19/20 gauge coaxial needle biopsy system was inserted and advanced into the mass. 10 mL of pus was aspirated and sent to the laboratory for further analysis. Three core biopsy samples were also obtained and sent to the lab. CT images obtained directly after the biopsy show no evidence of a hematoma. After the appropriate amount of monitored convalescence the patient was discharged from the department. IMPRESSION: CT-guided aspiration and biopsy of a mass in Morison's pouch. <Electronically signed by Trisha Michael > 05/19/20 1412 <Electronically signed by Patel June > 05/19/20 1615
== END ==
LOC: M IRPRO 10:59
PROVIDERS: ATTEND Physician Assistant
DX: D48.3 Neoplasm of uncertain behavior of retroperitoneum (principal); R10.10 Upper abdominal pain, unspecified

== ENCOUNTER 2020-05-26 12:15 | Emergency (ER) | payer BC ==
[~2020-05-26] VITALS: Ht 175.3 cm; Wt 111.2 kg
[~2020-05-26 12:15] MED LIST changes: -LEVO750T13; -LEVO750T13 PO; -LIDOCAINE 1% MDV 20ML VIAL As Ordered ONE; -PERC5TAB12 PO; -SODIUM BICARBONATE 8.4% INJ 50MEQ 50 ML VIAL As Ordered ONE
[2020-05-26] MEDS ORDERED: LEVO750T13 (12:43)
[2020-05-26 14:03] LABS: BASO % 0.5 % (0.0-1.0); EOS # 0.1 10^3/uL (0.0-0.5); EOS % 1.2 % (0.0-3.0); HEMOGLOBIN 13.7 g/dl (13.5-17.5); LYMPH # 1.4 10^3/uL (1.5-5.0); LYMPH % 34.5 % (24.0-44.0); MEAN CORPUSCULAR HEMOGLOBIN 24.4 pg (27.0-33.0); MEAN CORPUSCULAR HGB CONC 31.1 g/dl (32.0-36.5); MEAN CORPUSCULAR VOLUME 78.3 fl (80.0-96.0); MONO # 0.1 10^3/uL (0.0-0.8); MONO % 2.7 % (2.0-8.0); NEUTROPHILS # 2.5 10^3/uL (1.5-8.5); NEUTROPHILS % 60.9 % (36.0-66.0); PLATELET COUNT, AUTOMATED 168 10^3/uL (150-450); RED BLOOD COUNT 5.62 10^6/uL (4.30-6.10); WHITE BLOOD COUNT 4.1 10^3/uL (4.0-10.0)
[2020-05-26 14:30] LABS: ALBUMIN 3.7 GM/DL (3.2-5.2); BILIRUBIN,DIRECT 0.2 MG/DL (0.0-0.2); BILIRUBIN,TOTAL 0.6 MG/DL (0.2-1.0); TOTAL PROTEIN 7.3 GM/DL (6.4-8.2)
[2020-05-26] MEDS ORDERED: ISOVUE-370 76% 100ML VIAL As Ordered ONE (14:57)
--- NOTE | 2020-05-26 15:39 | REP ---
INDICATION: inc pain after biopsy. COMPARISON: 05/09/2020 TECHNIQUE: Axial contrast-enhanced images from the lung bases to the pubic symphysis using 100 cc Isovue 370 intravenous contrast material. Coronal and sagittal reformations obtained. This CT examination was performed using the following dose reduction techniques: Automated exposure control, adjustment of mA and/or kv according to the patient's size, and the use of iterative reconstruction technique. FINDINGS: Complex 4.5 cm lesion inseparable from the inferior right hepatic lobe in the region of Cid's pouch with central low-density necrotic component and surrounding thick walled enhancing soft tissue as well as adjacent fat stranding is again identified and similar to prior examination in overall appearance. Remainder of the liver demonstrates fatty infiltration and no further hepatic lesions are identified. No significant ascites. Spleen, pancreas, gallbladder, bilateral adrenal glands and kidneys are normal. The enteric system is without obstruction or acute inflammatory process. Pelvis demonstrates normal bladder and age-appropriate prostate/seminal vesicles. Abdominal aorta and vasculature are normal. IMPRESSION: Complex lesion along the inferior margin of the right hepatic lobe/Morison's pouch similar to prior examination. No associated new free fluid. Differential diagnosis includes hepatic abscess and less likely neoplastic process. <Electronically signed by Helio Gao > 05/26/20 [id number]
[2020-05-26] MEDS ORDERED: LEVO750T13 PO (16:16)
[2020-05-26] MEDS ORDERED: PERC5TAB12 PO (16:16)
[2020-05-26 16:26] VITALS: BP 139/81
--- NOTE | 2020-05-26 20:06 | ED PDOC ---
Post-Departure Follow-Up ct abd/p faxed to dr omore for fu Robyn Mcgowan MD May 26, 2020 20:06
== END 2020-05-26 16:28 | disposition home or self-care (01) ==
LOC: M ED 12:15
DX: L02.211 Cutaneous abscess of abdominal wall (principal); E66.9 Obesity, unspecified; Z85.6 Personal history of leukemia; Z79.899 Other long term (current) drug therapy; Z88.8 Allergy status to other drugs, medicaments and biological substances
CPT/HCPCS: 74177; 80047; 80076; 81001; 83690; 85025; 99284; Q9967

== ENCOUNTER → 2020-07-28 | Outpatient (CLI) | payer OTHER ==
[~2020-07-28] MED LIST changes: +ISOVUE-370 76% 100ML VIAL As Ordered ONE; +LEVO750T13; +LEVO750T13 PO; +PERC5TAB12 PO
--- NOTE | 2020-07-28 21:19 | REP ---
INDICATION: DYSPNEA, UNSPECIFIED *CT FIRST* COMPARISON: 04/18/2019 TECHNIQUE: PA and lateral. FINDINGS: The mediastinum and cardiac silhouette are normal. The lung uriostegui are clear and without acute consolidation, effusion, or pneumothorax. The skeletal structures are intact and normal. IMPRESSION: No acute cardiopulmonary process. <Electronically signed by Helio Gao > 07/28/20 [id number]
== END ==
LOC: M RAD 12:24
PROVIDERS: ATTEND Physician Assistant
DX: R06.00 Dyspnea, unspecified (principal)

== ENCOUNTER → 2020-07-28 | Outpatient (CLI) | payer OTHER ==
[~2020-07-28] MED LIST changes: -ISOVUE-370 76% 100ML VIAL As Ordered ONE
--- NOTE | 2020-07-28 23:21 | REP ---
INDICATION: PERITONEAL ABSCESS *XRAY AFTER*. COMPARISON: 05/26/2020 TECHNIQUE: Axial contrast-enhanced images from the lung bases to the pubic symphysis using 100 cc Isovue 370 intravenous contrast material. Coronal and sagittal reformations obtained.. This CT examination was performed using the following dose reduction techniques: Automated exposure control, adjustment of mA and/or kv according to the patient's size, and the use of iterative reconstruction technique. FINDINGS: The complex multiloculated hepatic abscess in Cid's pouch and inseparable from the right hepatic lobe has increased in size and now measures approximately 6.3 x 4.5 x 6.5 cm with relatively mild adjacent fat stranding. The liver itself demonstrates diffuse fatty infiltration without further focal abnormality. Spleen, pancreas, gallbladder, bilateral adrenal glands and kidneys are normal. The enteric system is without obstruction or acute inflammatory process. There is evidence for prior anastomosis/resection in the right lower quadrant. Scattered diverticula noted without acute diverticulitis. Pelvis demonstrates normal bladder and age-appropriate prostate/seminal vesicles. No ascites. No free air. No significant adenopathy. Abdominal aorta and vasculature are essentially normal. Musculoskeletal structures are intact and without acute osseous abnormality. Lung bases are clear. IMPRESSION: 1. Multiloculated perihepatic abscess is increased in size and demonstrates increased central fluid component with mild fat stranding. 2. No further acute abdominopelvic pathology appreciated. 3. <Electronically signed by Helio Gao > 07/28/20 [id number]
== END ==
LOC: M RAD 12:19
PROVIDERS: ATTEND Nurse Practitioner
DX: K65.1 Peritoneal abscess (principal); K76.0 Fatty (change of) liver, not elsewhere classified; K75.0 Abscess of liver

== ENCOUNTER → 2020-10-06 | Outpatient (CLI) | payer OTHER | LOC: M RADPRO 09:34 | PROVIDERS: ATTEND Physician Assistant | DX: R91.8 Other nonspecific abnormal finding of lung field (principal) ==

== ENCOUNTER → 2021-03-10 | Outpatient (CLI) | payer OTHER ==
[2021-03-10 17:34] LABS: ALBUMIN 4.1 GM/DL (3.2-5.2); ALT/SGPT 73 U/L (12-78); BILIRUBIN,TOTAL 0.7 MG/DL (0.2-1.0); BLOOD UREA NITROGEN 17 MG/DL (7-18); CALCIUM LEVEL 9.2 MG/DL (8.5-10.1); CARBON DIOXIDE LEVEL 28 MEQ/L (21-32); CHLORIDE LEVEL 104 MEQ/L (98-107); CREATININE FOR GFR 0.98 MG/DL (0.70-1.30); GLOMERULAR FILTRATION RATE > 60.0 (>60); GLUCOSE, FASTING 91 MG/DL (70-100); LDH LACTATE DEHYDROGENASE 155 U/L (87-241); POTASSIUM SERUM 4.6 MEQ/L (3.5-5.1); SODIUM LEVEL 137 MEQ/L (136-145); TOTAL PROTEIN 7.4 GM/DL (6.4-8.2)
== END ==
LOC: M LAB 15:33
PROVIDERS: ATTEND Internal Medicine Hematology
DX: C91.42 Hairy cell leukemia, in relapse (principal)

== ENCOUNTER → 2021-03-10 | Outpatient (CLI) | payer OTHER ==
[2021-03-10 17:13] LABS: HEMATOCRIT 47.3 % (42.0-52.0); HEMOGLOBIN 15.2 g/dl (13.5-17.5); MEAN CORPUSCULAR HEMOGLOBIN 25.8 pg (27.0-33.0); MEAN CORPUSCULAR HGB CONC 32.1 g/dl (32.0-36.5); MEAN CORPUSCULAR VOLUME 80.3 fl (80.0-96.0); RED BLOOD COUNT 5.89 10^6/uL (4.30-6.10)
[2021-03-10 18:16] LABS: PLATELET COUNT, AUTOMATED 91 10^3/uL (150-450)
[2021-03-10 18:24] LABS: ATYPICAL LYMPH 1 % (0-5); BASOPHILS 2 % (0-1); EOSINOPHILS 2 % (0-3); LYMPHOCYTES 25 % (16-44); MONOCYTES 1 % (0-5); NEUTROPHILS 69 % (28-66); PLATELET ESTIMATE DECREASED (NORMAL)
== END ==
LOC: M LAB 15:37
PROVIDERS: ATTEND Nurse Practitioner Gerontology
DX: C91.42 Hairy cell leukemia, in relapse (principal)

== ENCOUNTER → 2022-11-11 | Outpatient (CLI) | payer OTHER ==
[~2022-11-11] MED LIST changes: +LEVO1TAB40; +LEVO1TAB40 PO; -LEVO750T13; -LEVO750T13 PO
[2022-11-11 09:48] LABS: BASO # 0.1 10^3/uL (0.0-0.2); EOS # 0.2 10^3/uL (0.0-0.5); EOS % 4.6 % (0.0-3.0); HEMATOCRIT 50.3 % (42.0-52.0); HEMOGLOBIN 16.2 g/dl (13.5-17.5); LYMPH # 1.3 10^3/uL (1.5-5.0); LYMPH % 25.2 % (24.0-44.0); MEAN CORPUSCULAR HEMOGLOBIN 25.6 pg (27.0-33.0); MEAN CORPUSCULAR HGB CONC 32.2 g/dl (32.0-36.5); MEAN CORPUSCULAR VOLUME 79.6 fl (80.0-96.0); MONO # 0.4 10^3/uL (0.0-0.8); MONO % 8.2 % (2.0-8.0); NEUTROPHILS % 60.2 % (36.0-66.0); PLATELET COUNT, AUTOMATED 176 10^3/uL (150-450); RED BLOOD COUNT 6.32 10^6/uL (4.30-6.10)
[2022-11-11 10:10] LABS: ALBUMIN 4.2 G/DL (3.2-5.2); ALKALINE PHOSPHATASE 59 U/L (46-116); ALT/SGPT 45 U/L (7.0-40); AST/SGOT 18 U/L (<34); BILIRUBIN,TOTAL 0.7 MG/DL (0.3-1.2); BLOOD UREA NITROGEN 21 MG/DL (9-23); CALCIUM LEVEL 9.4 MG/DL (8.5-10.1); CARBON DIOXIDE LEVEL 26 MMOL/L (20-31); CHLORIDE LEVEL 105 MMOL/L (98-107); CHOLESTEROL LEVEL 217 MG/DL (<200); CHOLESTEROL RISK RATIO 4.58 (<5); CREATININE FOR GFR 0.88 MG/DL (0.70-1.30); GLOMERULAR FILTRATION RATE > 60.0 (>60); GLUCOSE, FASTING 114 MG/DL (60-100); HDL CHOLESTEROL 47.3 MG/DL (>40); LDL CHOLESTEROL 137.7 MG/DL (<100); NON-HDL-C 169.7 MG/DL; POTASSIUM SERUM 4.3 MMOL/L (3.5-5.1); SODIUM LEVEL 138 MMOL/L (136-145); TOTAL PROTEIN 7.2 G/DL (5.7-8.2); TRIGLYCERIDES LEVEL 160 MG/DL (<150)
[2022-11-11 11:01] LABS: HEMOGLOBIN A1c 5.6 % (4.0-6.0)
== END ==
LOC: M RAD 08:58
PROVIDERS: ATTEND Physician Assistant
DX: M54.50 Low back pain, unspecified (principal); K75.81 Nonalcoholic steatohepatitis (NASH); E78.00 Pure hypercholesterolemia, unspecified; R73.01 Impaired fasting glucose; M47.817 Spondylosis without myelopathy or radiculopathy, lumbosacral region

== ENCOUNTER → 2023-02-16 | Outpatient (REF) | payer OTHER | LOC: M LAB REF 15:18 | PROVIDERS: ATTEND Physician Assistant | DX: L98.9 Disorder of the skin and subcutaneous tissue, unspecified (principal) ==

== ENCOUNTER → 2023-05-23 | Outpatient (CLI) | payer OTHER ==
[2023-05-23 09:25] LABS: BASO # 0.1 10^3/uL (0.0-0.2); BASO % 0.9 % (0.0-1.0); EOS # 0.2 10^3/uL (0.0-0.5); EOS % 3.7 % (0.0-3.0); HEMATOCRIT 49.3 % (42.0-52.0); HEMOGLOBIN 15.8 g/dl (13.5-17.5); LYMPH # 1.5 10^3/uL (1.5-5.0); LYMPH % 27.9 % (24.0-44.0); MEAN CORPUSCULAR HEMOGLOBIN 25.7 pg (27.0-33.0); MEAN CORPUSCULAR VOLUME 80.3 fl (80.0-96.0); MONO # 0.4 10^3/uL (0.0-0.8); NEUTROPHILS # 3.3 10^3/uL (1.5-8.5); NEUTROPHILS % 59.9 % (36.0-66.0); PLATELET COUNT, AUTOMATED 173 10^3/uL (150-450); RED BLOOD COUNT 6.14 10^6/uL (4.30-6.10); WHITE BLOOD COUNT 5.4 10^3/uL (4.0-10.0)
[2023-05-23 09:57] LABS: ALKALINE PHOSPHATASE 57 U/L (46-116); ALT/SGPT 46 U/L (7.0-40); AST/SGOT 24 U/L (<34); BILIRUBIN,TOTAL 0.6 MG/DL (0.3-1.2); BLOOD UREA NITROGEN 24 MG/DL (9-23); CALCIUM LEVEL 9.3 MG/DL (8.5-10.1); CARBON DIOXIDE LEVEL 28 MMOL/L (20-31); CHLORIDE LEVEL 107 MMOL/L (98-107); CHOLESTEROL LEVEL 253 MG/DL (<200); CHOLESTEROL RISK RATIO 6.65 (<5); CREATININE FOR GFR 0.92 MG/DL (0.70-1.30); GLOMERULAR FILTRATION RATE > 60.0 (>60); GLUCOSE, FASTING 124 MG/DL (60-100); LDL CHOLESTEROL 147.8 MG/DL (<100); POTASSIUM SERUM 4.8 MMOL/L (3.5-5.1); SODIUM LEVEL 139 MMOL/L (136-145); TOTAL PROTEIN 6.8 G/DL (5.7-8.2); TRIGLYCERIDES LEVEL 336 MG/DL (<150)
[2023-05-23 09:58] LABS: FREE T4 0.86 NG/DL (0.89-1.76)
[2023-05-23 09:59] LABS: THYROID STIMULATING HORMONE 2.368 uIU/ML (0.55-4.78)
[2023-05-23 10:14] LABS: HEMOGLOBIN A1c 5.8 % (4.0-6.0)
== END ==
LOC: M LAB 08:15
PROVIDERS: ATTEND Physician Assistant
DX: K75.81 Nonalcoholic steatohepatitis (NASH) (principal); E78.2 Mixed hyperlipidemia; K21.00 Gastro-esophageal reflux disease with esophagitis, without bleeding; J45.30 Mild persistent asthma, uncomplicated

== ENCOUNTER → 2023-07-21 | Outpatient (CLI) | payer OTHER ==
[2023-07-21 17:55] LABS: BLOOD UREA NITROGEN 13 MG/DL (9-23); CALCIUM LEVEL 9.5 MG/DL (8.5-10.1); CARBON DIOXIDE LEVEL 28 MMOL/L (20-31); CHLORIDE LEVEL 103 MMOL/L (98-107); CREATININE FOR GFR 0.85 MG/DL (0.70-1.30); GLOMERULAR FILTRATION RATE > 60.0 (>60); GLUCOSE, FASTING 87 MG/DL (60-100); POTASSIUM SERUM 3.9 MMOL/L (3.5-5.1); SODIUM LEVEL 139 MMOL/L (136-145)
== END ==
LOC: M LAB 16:58
PROVIDERS: ATTEND Physician Assistant
DX: I10 Essential (primary) hypertension (principal)

== ENCOUNTER 2023-08-11 06:37 | Emergency (ER) | payer OTHER ==
[~2023-08-11] VITALS: Ht 175.3 cm; Wt 101.9 kg
[2023-08-11] MEDS: CEPHALEXIN 500 MG CAP PO ONE (07:39)
[2023-08-11] MEDS: BOOSTRIX VACCINE (TETANUS/DIPHTH/ACEL. PERTUSSIS) 0.5ML SYR IM.IMMUN ONE (07:40)
[2023-08-11] MEDS ORDERED: CEPH500C PO (08:35)
[2023-08-11 08:47] VITALS: BP 138/81; TEMP 96.5; O2SAT 97
== END 2023-08-11 08:50 | disposition home or self-care (01) ==
LOC: M ED 06:37
DX: S62.601A Fracture of unspecified phalanx of left index finger, initial encounter for closed fracture (principal); S61.031A Puncture wound without foreign body of right thumb without damage to nail, initial encounter; W23.1XXA Caught, crushed, jammed, or pinched between stationary objects, initial encounter; Y92.9 Unspecified place or not applicable; Y93.9 Activity, unspecified; Y99.0 Civilian activity done for income or pay; K21.9 Gastro-esophageal reflux disease without esophagitis; Z79.899 Other long term (current) drug therapy; Z88.8 Allergy status to other drugs, medicaments and biological substances

== ENCOUNTER 2023-09-08 04:28 | Emergency (ER) | payer OTHER ==
[~2023-09-08] VITALS: Ht 175.3 cm; Wt 103.1 kg
[~2023-09-08 04:28] MED LIST changes: +CEPH500C PO
[2023-09-08 05:29] LABS: BASO % 0.4 % (0.0-1.0); EOS # 0.1 10^3/uL (0.0-0.5); EOS % 0.7 % (0.0-3.0); HEMATOCRIT 49.5 % (42.0-52.0); HEMOGLOBIN 16.2 g/dl (13.5-17.5); LYMPH # 1.2 10^3/uL (1.5-5.0); LYMPH % 11.3 % (24.0-44.0); MEAN CORPUSCULAR HEMOGLOBIN 25.8 pg (27.0-33.0); MEAN CORPUSCULAR HGB CONC 32.7 g/dl (32.0-36.5); MEAN CORPUSCULAR VOLUME 78.9 fl (80.0-96.0); MONO # 0.7 10^3/uL (0.0-0.8); MONO % 6.1 % (2.0-8.0); NEUTROPHILS # 8.9 10^3/uL (1.5-8.5); NEUTROPHILS % 81.2 % (36.0-66.0); RED BLOOD COUNT 6.27 10^6/uL (4.30-6.10); WHITE BLOOD COUNT 10.9 10^3/uL (4.0-10.0)
[2023-09-08] MEDS ORDERED: GASTROGRAFIN SOLUTION 30ML As Ordered ONE (05:56)
[2023-09-08 05:59] LABS: PLATELET COUNT, AUTOMATED 165 10^3/uL (150-450)
[2023-09-08] MEDS: GASTROGRAFIN SOLUTION 30ML PO SCH (06:08)
[2023-09-08 06:31] LABS: BLOOD UREA NITROGEN 20 MG/DL (9-23); CALCIUM LEVEL 9.4 MG/DL (8.5-10.1); CARBON DIOXIDE LEVEL 28 MMOL/L (20-31); CHLORIDE LEVEL 104 MMOL/L (98-107); CREATININE FOR GFR 0.84 MG/DL (0.70-1.30); GLOMERULAR FILTRATION RATE > 60.0 (>60); GLUCOSE, FASTING 139 MG/DL (60-100); POTASSIUM SERUM 4.1 MMOL/L (3.5-5.1); SODIUM LEVEL 138 MMOL/L (136-145)
[2023-09-08] MEDS ORDERED: ISOVUE-370 76% 100ML VIAL As Ordered ONE (07:30)
[2023-09-08] MEDS ORDERED: POTA-151 (08:09)
[2023-09-08] MEDS ORDERED: ROSU20TA61 (08:09)
[2023-09-08] MEDS ORDERED: HYDR-3716 (08:09)
[2023-09-08] MEDS ORDERED: VALS320T3 (08:09)
[2023-09-08] MEDS ORDERED: PANT40TA29 (08:09)
[2023-09-08 08:45] VITALS: BP 129/64; TEMP 97.7; O2SAT 95
== END 2023-09-08 08:56 | disposition home or self-care (01) ==
LOC: M ED 04:28
DX: R10.9 Unspecified abdominal pain (principal); I10 Essential (primary) hypertension; E78.5 Hyperlipidemia, unspecified; K76.0 Fatty (change of) liver, not elsewhere classified; Z90.49 Acquired absence of other specified parts of digestive tract; Z85.6 Personal history of leukemia; Z79.899 Other long term (current) drug therapy; Z88.8 Allergy status to other drugs, medicaments and biological substances
CPT/HCPCS: 74021; 74177; 80048; 85025; 99284; Q9967

== ENCOUNTER 2023-10-03 10:35 | Emergency (ER) | payer OTHER, SELFPAY ==
[~2023-10-03] VITALS: Ht 175.3 cm; Wt 105.0 kg
[~2023-10-03 10:35] MED LIST changes: +HYDR-3716; +PANT40TA29; +POTA-151; +ROSU20TA61; +VALS320T3
[2023-10-03] MEDS: PERCOCET 5MG/325MG TAB PO ONE (13:36)
[2023-10-03] MEDS: CYCLOBENZAPRINE 10MG TABLET PO ONE (13:36)
[2023-10-03 13:51] LABS: BASO % 0.4 % (0.0-1.0); EOS # 0.2 10^3/uL (0.0-0.5); EOS % 2.3 % (0.0-3.0); HEMATOCRIT 47.4 % (42.0-52.0); HEMOGLOBIN 15.3 g/dl (13.5-17.5); LYMPH # 1.2 10^3/uL (1.5-5.0); LYMPH % 17.9 % (24.0-44.0); MEAN CORPUSCULAR HGB CONC 32.3 g/dl (32.0-36.5); MEAN CORPUSCULAR VOLUME 80.5 fl (80.0-96.0); MONO # 0.5 10^3/uL (0.0-0.8); MONO % 6.8 % (2.0-8.0); NEUTROPHILS # 4.9 10^3/uL (1.5-8.5); NEUTROPHILS % 72.2 % (36.0-66.0); PLATELET COUNT, AUTOMATED 145 10^3/uL (150-450); RED BLOOD COUNT 5.89 10^6/uL (4.30-6.10); WHITE BLOOD COUNT 6.8 10^3/uL (4.0-10.0)
[2023-10-03 14:25] LABS: ALKALINE PHOSPHATASE 55 U/L (46-116); ALT/SGPT 55 U/L (7.0-40); AST/SGOT 44 U/L (<34); BILIRUBIN,DIRECT 0.2 MG/DL (<0.4); BILIRUBIN,TOTAL 0.8 MG/DL (0.3-1.2); BLOOD UREA NITROGEN 20 MG/DL (9-23); CARBON DIOXIDE LEVEL 26 MMOL/L (20-31); CHLORIDE LEVEL 104 MMOL/L (98-107); CREATININE FOR GFR 0.67 MG/DL (0.70-1.30); GLOMERULAR FILTRATION RATE > 60.0 (>60); GLUCOSE, FASTING 102 MG/DL (60-100); POTASSIUM SERUM 4.1 MMOL/L (3.5-5.1); SODIUM LEVEL 135 MMOL/L (136-145)
[2023-10-03] MEDS ORDERED: CYCL-707 PO (14:53)
[2023-10-03] MEDS ORDERED: IBUP-1022 PO (14:53)
[2023-10-03] MEDS ORDERED: PERC5TAB12 PO (14:54)
[2023-10-03 15:07] VITALS: BP 117/70; TEMP 97.1; O2SAT 98
== END 2023-10-03 15:16 | disposition home or self-care (01) ==
LOC: M ED 10:35
DX: S39.012A Strain of muscle, fascia and tendon of lower back, initial encounter (principal); X58.XXXA Exposure to other specified factors, initial encounter; Y92.89 Other specified places as the place of occurrence of the external cause; Y93.9 Activity, unspecified; Y99.9 Unspecified external cause status; K21.9 Gastro-esophageal reflux disease without esophagitis; Z85.6 Personal history of leukemia

== ENCOUNTER → 2023-10-19 | Outpatient (CLI) | payer OTHER ==
[~2023-10-19] MED LIST changes: +CYCL-707 PO; +IBUP-1022 PO
[2023-10-19 07:16] LABS: BASO # 0.1 10^3/uL (0.0-0.2); BASO % 0.8 % (0.0-1.0); EOS # 0.2 10^3/uL (0.0-0.5); EOS % 3.7 % (0.0-3.0); HEMATOCRIT 46.8 % (42.0-52.0); HEMOGLOBIN 15.2 g/dl (13.5-17.5); LYMPH % 32.3 % (24.0-44.0); MEAN CORPUSCULAR HGB CONC 32.5 g/dl (32.0-36.5); MEAN CORPUSCULAR VOLUME 80.1 fl (80.0-96.0); MONO # 0.6 10^3/uL (0.0-0.8); MONO % 8.9 % (2.0-8.0); NEUTROPHILS # 3.3 10^3/uL (1.5-8.5); NEUTROPHILS % 53.8 % (36.0-66.0); PLATELET COUNT, AUTOMATED 175 10^3/uL (150-450); RED BLOOD COUNT 5.84 10^6/uL (4.30-6.10); WHITE BLOOD COUNT 6.2 10^3/uL (4.0-10.0)
[2023-10-19 07:45] LABS: ALBUMIN 4.1 G/DL (3.2-5.2); ALKALINE PHOSPHATASE 50 U/L (46-116); ALT/SGPT 47 U/L (7.0-40); AST/SGOT 22 U/L (<34); BILIRUBIN,TOTAL 0.9 MG/DL (0.3-1.2); BLOOD UREA NITROGEN 20 MG/DL (9-23); CALCIUM LEVEL 9.5 MG/DL (8.5-10.1); CARBON DIOXIDE LEVEL 32 MMOL/L (20-31); CHLORIDE LEVEL 105 MMOL/L (98-107); CHOLESTEROL LEVEL 134 MG/DL (<200); CHOLESTEROL RISK RATIO 3.54 (<5); CREATININE FOR GFR 1.01 MG/DL (0.70-1.30); GLOMERULAR FILTRATION RATE > 60.0 (>60); GLUCOSE, FASTING 125 MG/DL (60-100); HDL CHOLESTEROL 37.8 MG/DL (>40); LDL CHOLESTEROL 79.4 MG/DL (<100); NON-HDL-C 96.2 MG/DL; POTASSIUM SERUM 4.2 MMOL/L (3.5-5.1); SODIUM LEVEL 140 MMOL/L (136-145); TOTAL PROTEIN 6.8 G/DL (5.7-8.2); TRIGLYCERIDES LEVEL 84 MG/DL (<150)
== END ==
LOC: M LAB 10-18 16:59
PROVIDERS: ATTEND Physician Assistant
DX: I10 Essential (primary) hypertension (principal); E78.2 Mixed hyperlipidemia; Z85.6 Personal history of leukemia

== ENCOUNTER → 2025-02-15 | Outpatient (CLI) | payer OTHER ==
[~2025-02-15] MED LIST changes: -IBUP-1022 PO; +IBUP600T42 PO; -ROSU20TA61; +ROSU20TA86
[2025-02-15 10:54] LABS: BASO # 0.1 10^3/uL (0.0-0.2); BASO % 1.0 % (0.0-1.0); EOS # 0.2 10^3/uL (0.0-0.5); EOS % 3.2 % (0.0-3.0); LYMPH # 1.7 10^3/uL (1.5-5.0); LYMPH % 24.9 % (24.0-44.0); MONO # 0.7 10^3/uL (0.0-0.8); MONO % 9.3 % (2.0-8.0); NEUTROPHILS # 4.3 10^3/uL (1.5-8.5); NEUTROPHILS % 61.3 % (36.0-66.0); PLATELET COUNT, AUTOMATED 233 10^3/uL (150-450)
[2025-02-15 11:26] LABS: ALT/SGPT 34 U/L (7.0-40); AST/SGOT 24 U/L (<34); CALCIUM LEVEL 9.7 MG/DL (8.5-10.1); CARBON DIOXIDE LEVEL 29 MMOL/L (20-31); CHLORIDE LEVEL 103 MMOL/L (98-107); CHOLESTEROL LEVEL 178 MG/DL (<200); CHOLESTEROL RISK RATIO 3.34 (<5); CREATININE FOR GFR 1.02 MG/DL (0.70-1.30); FREE T4 1.47 NG/DL (0.89-1.76); GLOMERULAR FILTRATION RATE > 90.0 (>60); IRON (FE) 123 UG/DL (65-175); LDL CHOLESTEROL 110.6 MG/DL (<100); NON-HDL-C 124.8 MG/DL; PERCENT SATURATION 35.0 % (19.7-50.0); POTASSIUM SERUM 4.9 MMOL/L (3.5-5.1); SODIUM LEVEL 142 MMOL/L (136-145); TRIGLYCERIDES LEVEL 71 MG/DL (<150)
[2025-02-15 11:28] LABS: VITAMIN B12 LEVEL 1111 PG/ML (211-911)
== END ==
LOC: M LAB 09:16
PROVIDERS: ATTEND Physician Assistant
DX: E78.2 Mixed hyperlipidemia (principal); K75.81 Nonalcoholic steatohepatitis (NASH); I10 Essential (primary) hypertension; E66.9 Obesity, unspecified